=== PATIENT | female | born 1985 | race Caucasian/White ===

== ENCOUNTER 2016-09-15 12:19 | Emergency (ER) | payer MEDICAID, OTHER ==
--- NOTE | 2016-09-15 12:39 | EDPHY ---
H & P Smoking Status: Never smoked Time Seen by Provider: 09/15/16 12:30 HPI/ROS: CHIEF COMPLAINT: Right elbow pain HISTORY OF PRESENT ILLNESS: 31-year-old left hand dominant female complaining of acute right elbow pain after she was skiing, hit a patch of sticky snow and fell forward onto her right elbow. She was able to continue skiing and drive herself via private vehicle to the ER. She also no she complained of right hip pain which has now resolved. She has full weight-bearing with no gait instability, no back pain, no shortening or malrotation. PHYSICAL EXAM (Prior to examination, patient consented to physical exam, hands were washed and my usual and customary physical exam procedures followed) 1) GENERAL: Well-developed, well-nourished, alert and oriented. Appears to be in no acute distress. 2) HEAD: Normocephalic 3) HEENT: sclera anicteric 4) LUNGS: Breathing comfortably. 5) SKIN: intact 6) MUSCULOSKELETAL: right upper extremity: Tender palpation radial head. Reproducible pain with supination pronation. Flexion extension relatively pain free. Distally and proximally nontender. Distal radial ulnar median nerve function intact. Right lower extremity : no shortening. No malrotation. Full weight-bearing. No pain with axial loading of the acetabulum. (Umberto Maldonado) Constitutional: Initial Vital Signs Temperature (C) 36.7 C 09/15/16 12:24 Heart Rate 91 09/15/16 12:24 Respiratory Rate 18 09/15/16 12:24 Blood Pressure 115/81 H 09/15/16 12:24 O2 Sat (%) 97 09/15/16 12:24 O2 Delivery Mode Room Air Allergies/Adverse Reactions: codeine [Codeine] Allergy (Verified 09/15/16 12:23) Home Medications: Medication Instructions Recorded Tramadol HCl 50 mg PO Q6 PRN #10 tablet 09/15/16 MDM/Departure - MDM Diagnostics: Xray of the right elbow interpreted by myself: Nondisplaced radial head fracture (Umberto Maldonado) Procedures: Procedure: Fracture treatment. The patient had x-rays taken and I confirmed that the patient had a fractured radial head . A sling splint was applied by ER scrub technician. After application of the splint I returned and re-examined the patient. The splint was adequately immobilizing the joint and distal to the splint the patient's circulation and sensation were intact. Patient shows no signs of compartment syndrome. Was given orthopedic precautions. (Umberto Maldonado) ED Course/Re-evaluation: Re-evaluation. Discussed her imaging results showing a nondisplaced radial head fracture. She has been placed in a sling. She specifically requests tramadol which has been prescribed her. Usual and customary orthopedic precautions and instructions provided. (Umberto Maldonado) The patient wasevaluatedand managed by themidlevel provider. Idiscussed the patient's presentation and course with thephysicianassistantor nurse practitionerand agree with theevaluation. My co-signature indicates that I have reviewed this chart and I agree with the findings and plan of care as documented. I am the secondary supervisingphysician. (Julieta Katz) - Depart Disposition: Home, Routine, Self-Care Clinical Impression: Right radial head fracture Qualifiers: Encounter type: initial encounter Fracture type: closed Fracture alignment: nondisplaced Qualified Code(s): S52.124A - Nondisplaced fracture of head of right radius, initial encounter for closed fracture Condition: Good Instructions: Elbow Fracture in Adults (ED) Additional Instructions: Return to the ER immediately if you experience discoloration, have worsening pain, numbness, tingling, or any other symptoms that concern you. If you received x-rays in the emergency department today, be advised, that ligamentous , tendon, muscular, and other non-bony injury cannot be fully ruled out. Try to keep your affected extremity elevated above the level of your chest, and keep cold packs on the affected area, for the next 48 hours. Stand Alone Forms: Statement of Treatment, Work Excuse Prescriptions: Tramadol HCl 50 mg PO Q6 PRN #10 tablet PRN Reason: Pain, Severe Referrals: Jerrod Cleveland MD [Medical Doctor] - 1-2 days without fail
[2016-09-15 14:19] VITALS: BP 118/79; PULSE 81; RESP 17; TEMP 99; O2SAT 96
== END 2016-09-15 14:19 | disposition home or self-care (01) ==
DX: S52.124A Nondisplaced fracture of head of right radius, initial encounter for closed fracture (principal); V00.321A Fall from snow-skis, initial encounter; Y92.89 Other specified places as the place of occurrence of the external cause; Y93.23 Activity, snow (alpine) (downhill) skiing, snowboarding, sledding, tobogganing and snow tubing
CPT/HCPCS: A4565

== ENCOUNTER 2016-11-30 14:09 | Emergency (ER) | payer MEDICAID ==
[2016-11-30 14:24] VITALS: BP 129/92; PULSE 67; RESP 16; TEMP 98.2; O2SAT 98
--- NOTE | 2016-11-30 14:42 | EDPHY ---
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 No loss of consciousness. No anticoagulant use. No neck pain. No peripheral paresthesia, weakness, numbness.No amnesia. No vomiting. PRIMARY CARE PROVIDER:worker's compensation REVIEW OF SYSTEMS: A ten point review of systems was performed and is negative with the exception of the items mentioned in the HPI PAST MEDICAL/SURGICAL HISTORY: no anticoagulant use, no relevant medical/ surgical history SOCIAL HISTORY: denies alcohol use at time of incident PHYSICAL EXAM 1) GENERAL: Well-developed, well-nourished, alert and oriented. Appears to be in no acute distress. Answering questions appropriately. GCS 15 2) HEAD: Normocephalic, 1 cm abrasion vertex of head. No hematoma. 3) HEENT: Pupils equal, round, reactive to light bilaterally. Negative Horners. Nasopharynx, oropharynx, clear. No deformity or angulation of nose. No septal hematoma. No rhinorrhea. No oral trauma. Ears bilaterally with normal tympanic membranes. No hemotympanum. No fluid or blood in the external auditory canal. No raccoon eyes. No Zambrano sign. Teeth are normally aligned with no gross malocclusion, TMJ bilaterally nontender, facial bones nontender including the zygomatic arch, maxilla mandible. No signs of basilar skull fracture 4) NECK: No cervical collar is on. Posterior cervical spine is nontender, no stepoff, no effusion. Full range of motion which does not elicit any midline cervical spine pain, no posterior midline tenderness, no step-off. 5) LUNGS: Clear to auscultation bilaterally, no wheezes, no rhonchi, no retractions. No obvious signs of trauma. No chest wall pain. No flaring, no grunting. Moving symmetrically. No crepitus. 6) HEART: Regular rate and rhythm, 7) ABDOMEN: No guarding, no rebound, no focal tenderness, no peritoneal signs, no signs of trauma, no ecchymosis 8) MUSCULOSKELETAL: Moving all extremities, no focal areas of tenderness, no obvious trauma. 9) BACK: No midline vertebral tenderness, no fluctuance, no step-off, no obvious trauma, no visual or palpable abnormality. 10) SKIN: abrasion to vertex of head DIFFERENTIAL DIAGNOSIS: Not necessarily in any particular order, my differential diagnosis includes, but is not limited to, concussion, skull fracture, intraparenchymal contusion, subarachnoid, subdural and epidural hematoma. The patient understands that this diagnosis is provisional and can never be 100% accurate. Smoking Status: Never smoked Constitutional: Initial Vital Signs Temperature (C) 36.8 C 11/30/16 14:21 Heart Rate 67 11/30/16 14:21 Respiratory Rate 16 11/30/16 14:21 Blood Pressure 129/92 H 11/30/16 14:21 O2 Sat (%) 98 11/30/16 14:21 O2 Delivery Mode Room Air Allergies/Adverse Reactions: codeine [Codeine] Allergy (Verified 11/30/16 14:20) Home Medications: Medication Instructions Recorded NK [No Known Home Meds] 11/30/16 MDM/Departure - [facility] Course/Re-evaluation: Patient has negative Haitian head CT rules. She is in agreement she does not think that CT imaging of head is indicated. Wound has been cleansed tetanus updated, given usual customary head injury precautions and instructions. - Depart Disposition: Home, Routine, Self-Care Clinical Impression: Head injury Qualifiers: Encounter type: initial encounter Qualified Code(s): S09.90XA - Unspecified injury of head, initial encounter Scalp abrasion Qualifiers: Encounter type: initial encounter Qualified Code(s): S00.01XA - Abrasion of scalp, initial encounter Condition: Good Instructions: Head Injury (ED), Abrasion (ED) Additional Instructions: ALTHOUGH THERE IS NO EVIDENCE OF SERIOUS HEAD INJURY AT THIS TIME, DELAYED SIGNS CAN APPEAR 24 TO 48 HOURS AFTER INJURY. WE RECOMMEND THAT YOU DESIGNATE A FRIEND OR FAMILY MEMBER TO OBSERVE YOU OVER THE NEXT FEW DAYS TO ENSURE THAT YOUR CONDITION IS PROGRESSING NORMALLY. PLEASE RETURN TO THE EMERGENCY DEPARTMENT (ED) IMMEDIATELY IF YOU HAVE INCREASED HEADACHE, PERSISTENT HEADACHE , VOMITING, WEAKNESS, CONFUSION OR VISUAL PROBLEMS. WE RECOMMEND THAT YOU DO NOT RESUME CONTACT SPORTS OR ACTIVITIES THAT TAKE COORDINATION OR BALANCE SUCH SKIING OR RIDING A BICYCLE UNTIL CLEARED TO DO SO BY YOUR DOCTOR OR BY A NEUROLOGIST. Stand Alone Forms: Work Excuse Referrals: followup, with work comp provider in 2 days [Other] - 1-2 days without fail
[2016-11-30] MEDS ORDERED: TDAP ADULT 0.5 ML INJ (BOOSTRIX) IM ONE (14:50)
== END 2016-11-30 14:57 | disposition home or self-care (01) ==
DX: S00.01XA Abrasion of scalp, initial encounter (principal); Z23 Encounter for immunization; W20.8XXA Other cause of strike by thrown, projected or falling object, initial encounter; Y92.69 Other specified industrial and construction area as the place of occurrence of the external cause; Y99.0 Civilian activity done for income or pay; Y93.89 Activity, other specified